=== PATIENT | female | born 1980 | race Caucasian/White ===

== ENCOUNTER 2016-08-15 22:53 | Emergency (ER) | payer MEDICAID ==
[2016-08-15] MEDS ORDERED: Albuterol-Ipratrop 3 mg / 0.5 (3 ml) UD ONE ×3 (23:13→23:27)
[2016-08-15] MEDS ORDERED: Albuterol-Ipratrop 3 mg / 0.5 (3 ml) UD INH STA (23:16)
--- NOTE | 2016-08-15 23:35 | C.PDOC ---
History Of Present Illness Patient is a 36 year old female who presents to the ER with a complaint of coughing and wheezing for the past 4 days. Patient was seen by PMD yesterday where unknown IM injection was given and given prednisone for 2 days. Denies fever, nausea, or vomiting. Time Seen by Provider: 08/15/16 23:11 Chief Complaint (Nursing): Shortness Of Breath History Per: Patient History/Exam Limitations: no limitations Onset/Duration Of Symptoms: Days (4) Current Symptoms Are (Timing): Still Present Associated Symptoms: denies: Fever, Chills Past Medical History Reviewed: Historical Data, Nursing Documentation, Vital Signs Vital Signs: Last Vital Signs Temp 97.8 F 08/15/16 23:03 Pulse 93 H 08/15/16 23:03 Resp 16 08/15/16 23:35 BP 128/87 08/15/16 23:03 Pulse Ox 97 08/16/16 00:44 - Medical History PMH: Asthma Family History: States: Unknown Family Hx - Social History Hx Alcohol Use: No Hx Substance Use: No - Immunization History Hx Tetanus Toxoid Vaccination: No Hx Influenza Vaccination: No Hx Pneumococcal Vaccination: No Review Of Systems Constitutional: Negative for: Fever, Chills Cardiovascular: Negative for: Palpitations Respiratory: Positive for: Cough, Wheezing Gastrointestinal: Negative for: Nausea, Vomiting Physical Exam - Physical Exam Appears: Non-toxic Skin: Normal Color, Warm, Dry Head: Atraumatic, Normacephalic Oral Mucosa: Moist Chest: Symmetrical Cardiovascular: Rhythm Regular Respiratory: Wheezing (Inspiratory/expiratory wheezing), Other (Prolonged expiration, moderate respiratory distress) Gastrointestinal/Abdominal: Soft, No Tenderness, Other (Obese) Neurological/Psych: Oriented x3, Normal Speech, Normal Cognition ED Course And Treatment O2 Sat by Pulse Oximetry: 97 Progress Note: Peak flow pre/post tx ordered. Combivent respimat INH, Pepcid PO , and prednisone PO administered. Reevaluation Time: 00:50 (improved breathing with increased airmovement and louder wheezing c/w improvement of bronchospasm.) Critical Care Time - Critical Care Note Total Time (in mins): 90 Documented critical care: time excludes all time spent performing seperately billable procedures. Medical Decision Making Medical Decision Making: asthma exacerbation, inadequately treated as outpatient 0100: offered inpt Obs for continued nebs treatments- declined as she has a @ home. Extensively educated on home treatment regimen for asthma- has nebs machine and albuterol liquids @ home. No cats nor cockroaches. + downstairs neighbors smoke cigarettes. Disposition Doctor Will See Patient In The: Office Counseled Patient/Family Regarding: Diagnosis - Disposition Disposition: HOME/ ROUTINE Disposition Time: 00:51 Condition: GOOD - Clinical Impression Clinical Impression: Exacerbation of asthma - Scribe Statement The provider has reviewed the documentation as recorded by the Scribjamie Brown All medical record entries made by the Rianibjamie were at my direction and personally dictated by me. I have reviewed the chart and agree that the record accurately reflects my personal performance of the history, physical exam, medical decision making, and the department course for this patient. I have also personally directed, reviewed, and agree with the discharge instructions and disposition.
[2016-08-15 23:41] VITALS: RESP 16
[2016-08-16] MEDS ORDERED: Albuterol-Ipratrop 3 mg / 0.5 (3 ml) UD INH STA ×2 (00:10→00:49)
[2016-08-16] MEDS ORDERED: Albuterol-Ipratrop 3 mg / 0.5 (3 ml) UD ONE ×4 (00:17→00:54)
[2016-08-16 01:19] VITALS: BP 107/63; PULSE 102; TEMP 98; O2SAT 100
== END 2016-08-16 01:19 | disposition home or self-care (01) ==
LOC: C.ER 22:53
DX: J45.901 Unspecified asthma with (acute) exacerbation (principal)